=== PATIENT | female | born 1945 | race African-American/Black ===

== ENCOUNTER → 2016-10-06 | Outpatient (CLI) | payer BC ==
[~2016-10-06] MED LIST: ASPIRINEC; FISH OIL 1,2001 CAP PO; LISINOPRIL; MULTI-VITAMIN1 TAB; PANTOPRAZOLE SO40 MG
== END | disposition home or self-care (01) ==
LOC: CECH 12:43
DX: R00.1 Bradycardia, unspecified (principal)
CPT/HCPCS: 93306